=== PATIENT | female | born 1975 | race African-American/Black ===

== ENCOUNTER 2019-10-11 14:26 | Emergency (ER) | payer SELFPAY ==
[~2019-10-11] VITALS: Ht 162.6 cm; Wt 88.6 kg
[2019-10-11 14:41] VITALS: BP 135/79; TEMP 98.1
[2019-10-11] MEDS ORDERED: FLEXERIL 1010 MG/TAB PO (15:46)
[2019-10-11] MEDS ORDERED: PREDNISONE20 MG PO (15:46)
[2019-10-11 15:59] VITALS: PULSE 86
== END 2019-10-11 15:56 | disposition home or self-care (01) ==
LOC: COL.ER 14:26
DX: R20.2 Paresthesia of skin (principal); Z88.0 Allergy status to penicillin

== ENCOUNTER 2019-10-16 07:31 | Emergency (ER) | payer SELFPAY ==
[~2019-10-16] VITALS: Ht 162.6 cm; Wt 88.6 kg
[~2019-10-16 07:31] MED LIST: FLEXERIL 1010 MG/TAB PO; PREDNISONE20 MG PO
[2019-10-16 07:38] VITALS: BP 118/81; TEMP 98.3
[2019-10-16] MEDS ORDERED: NEURONTIN300 MG/CAP PO (09:36)
[2019-10-16 09:50] VITALS: PULSE 101
== END 2019-10-16 09:48 | disposition home or self-care (01) ==
LOC: COL.ER 07:31
DX: R20.2 Paresthesia of skin (principal); Z79.52 Long term (current) use of systemic steroids; Z88.0 Allergy status to penicillin

== ENCOUNTER 2019-11-08 15:23 | Emergency (ER) | payer SELFPAY ==
[~2019-11-08] VITALS: Ht 162.6 cm; Wt 90.9 kg
[~2019-11-08 15:23] MED LIST changes: +NEURONTIN300 MG/CAP PO
[2019-11-08 15:25] VITALS: TEMP 98.9
[2019-11-08] MEDS ORDERED: ULTRAM 50MG TAB50 MG PO (16:43)
[2019-11-08 17:10] VITALS: BP 120/63; PULSE 93
== END 2019-11-08 17:10 | disposition home or self-care (01) ==
LOC: COL.ER 15:23
DX: M79.2 Neuralgia and neuritis, unspecified (principal)
CPT/HCPCS: J1885

== ENCOUNTER → 2020-01-11 | Outpatient (CLI) | payer OTHER ==
[~2020-01-11] MED LIST changes: +KEPPRA 500MG500 MG PO; +ULTRAM 50MG TAB50 MG PO
== END ==
LOC: MC.RAD 07:45
DX: Z12.31 Encounter for screening mammogram for malignant neoplasm of breast (principal); Z80.3 Family history of malignant neoplasm of breast

== ENCOUNTER 2020-01-14 10:30 | Outpatient (RCR) | payer OTHER | END 2020-03-03 | disposition home or self-care (01) | LOC: WSC | DX: M79.601 Pain in right arm (principal); R20.2 Paresthesia of skin ==

== ENCOUNTER 2020-03-18 09:59 | Emergency (ER) | payer MEDICAID ==
[~2020-03-18] VITALS: Ht 162.6 cm; Wt 88.6 kg
[2020-03-18 10:16] VITALS: TEMP 98.8
[2020-03-18 10:49] LABS: COLLECTION METHOD CLEAN CATCH
[2020-03-18 10:58] LABS: BASO # 0.1 (0.0-0.2); BASO % 0.7 % (0.0-2.0); EOS % 0.2 % (0-4.0); GRAN # 7.8 (1.4-6.5); HEMATOCRIT 40.2 % (37.0-47.0); HEMOGLOBIN 13.6 g/dl (12.5-16.0); LYMPH # 1.2 (1.2-3.4); LYMPH % 12.5 % (20.0-51.0); MEAN CELL VOLUME 90 fl (80.0-100.0); MEAN CORPUSCULAR HEMOGLOBIN 31 pg (27.0-31.0); MEAN CORPUSCULAR HGB CONC 34 g/dl (33.0-37.0); MEAN PLATELET VOLUME 9.6 fl (7.4-10.4); MONO # 0.6 (0.1-0.6); MONO % 6.4 % (1.7-9.3); PLATELET COUNT 305 K/mm3 (130-400); RED BLOOD COUNT 4.45 M/mm3 (4.10-5.30); REDCELL DISTRIBUTION WIDTH-CV 12.8 % (11.5-14.5)
[2020-03-18 10:59] LABS: ALBUMIN 4.7 gm/dL (3.5-5.0); BILIRUBIN,TOTAL 0.6 mg/dL (0.0-1.0); CALCIUM 9.2 mg/dL (8.4-10.2); CREATININE, serum 0.93 (0.52-1.25); POTASSIUM 3.8 mmol/L (3.4-5.0); TOTAL PROTEIN 7.9 gm/dL (6.4-8.2)
[2020-03-18 11:15] LABS: PROLACTIN 5.4 ng/mL (3.0-18.6)
[2020-03-18 11:18] LABS: MUCOUS Present /lpf; PH 5 (5-8); URINE APPEARANCE Hazy; URINE BACTERIA None Seen /hpf; URINE BILIRUBIN Negative (NEGATIVE); URINE BLOOD 2+ (NEGATIVE); URINE COLOR Yellow; URINE GLUCOSE Negative (NEGATIVE); URINE KETONE Negative (NEGATIVE); URINE LEUKOCYTE ESTERASE Negative (NEGATIVE); URINE NITRATE Negative (NEGATIVE); URINE PROTEIN(semi-quant) Negative (NEGATIVE); URINE RBC 0-2 /hpf; URINE UROBILINOGEN Negative (NEGATIVE)
[2020-03-18] MEDS ORDERED: DEPAKOTE ER 50500 MG PO (11:26)
[2020-03-18 12:05] VITALS: BP 125/65; PULSE 87
== END 2020-03-18 12:02 | disposition home or self-care (01) ==
LOC: COL.ER 09:59
PROVIDERS: Family Medicine
DX: R51.9 Headache, unspecified (principal); G40.909 Epilepsy, unspecified, not intractable, without status epilepticus; R53.1 Weakness; R11.0 Nausea; Z88.6 Allergy status to analgesic agent; Z88.0 Allergy status to penicillin
CPT/HCPCS: J7120

== ENCOUNTER 2020-04-25 06:48 | Day surgery (SDC) | payer MEDICAID ==
[2020-04-25] VITALS (12 sets, daily range): BP systolic 121–140; BP diastolic 60–81; PULSE 84–110; TEMP 97.8–98.6
[~2020-04-25] VITALS: Ht 162.6 cm; Wt 90.0 kg
[~2020-04-25 06:48] MED LIST changes: +DEPAKOTE ER 50500 MG PO
[2020-04-25] MEDS ORDERED: Birth control PO (09:17)
--- NOTE | 2020-04-25 16:00 | NUR ---
Patient calls out and reports incision site is bleeding. Golf ball sized amount of saturation noted on gown from top site. Dr. Le notified, orders recieved to apply gauze and tegaderm. Placed per order.
[2020-04-25] MEDS ORDERED: ROXICODONE 55 MG/TAB PO (16:42)
[2020-04-25] MEDS ORDERED: IBU800 M1 PO (16:42)
--- NOTE | 2020-04-25 22:30 | NUR ---
Lap incision above umbulicus dressing off. Pt requests new dressing. Site with old blood drainage, no new drainage noted. Quarter sized bruising aroung incision. New 2x2 and tegaderm dressing placed.
[2020-04-26 05:50] VITALS: BP 120/59; PULSE 91; TEMP 98.9
[2020-04-26 07:21] VITALS: BP 114/57; PULSE 98; TEMP 98
--- NOTE | 2020-04-26 09:00 | NUR ---
AC BLOOD SUGAR NOTED TO BE 46. FED 18 ML BOTTLE OF SIMILAC BY MOTHER. DR. HOME RACHEL INFORMED. CONTINUE TO MONITOR BS.
--- NOTE | 2020-04-26 10:15 | NUR ---
PT UP TO BATHROOM W/ STANDBY ASSIST. PT ONLY ABLE TO VOID APPROX 30 ML. RN ENCOURAGED PT TOP INCREASE FLUID INTAKE. PT TOLERATED AMBULATION WELL, DENIES DIZZINESS/ NAUSEA/INCREASED PAIN WITH URINATION.
[2020-04-26 12:43] VITALS: BP 110/960; PULSE 104; TEMP 98.4
--- NOTE | 2020-04-26 13:13 | NUR ---
INT REMOVED, D/S INSTRUCTIONS PROVIDED. UNDERSTANDING VERBALIZED. PT ESCORTED OFF UNIT.
== END 2020-04-26 13:15 | disposition home or self-care (01) ==
LOC: SDCO 06:48 → OB 11:25 → SDCO 04-26 13:15
DX: D25.2 Subserosal leiomyoma of uterus (principal); N92.0 Excessive and frequent menstruation with regular cycle; N83.8 Other noninflammatory disorders of ovary, fallopian tube and broad ligament; E66.9 Obesity, unspecified; Z88.0 Allergy status to penicillin; Z20.822 Contact with and (suspected) exposure to COVID-19
CPT/HCPCS: OP; A4314; J0330; J1100; J1200; J2405; J2550; J2704; J2710; J2795; J3010; J7120

== ENCOUNTER → 2020-07-03 | Outpatient (CLI) | payer MEDICAID ==
[~2020-07-03] MED LIST changes: +Birth control PO; +IBU800 M1 PO; +ROXICODONE 55 MG/TAB PO
== END ==
LOC: COL.RAD 07:07
DX: R20.2 Paresthesia of skin (principal); Z86.69 Personal history of other diseases of the nervous system and sense organs
CPT/HCPCS: A9585

== ENCOUNTER → 2020-08-04 | Outpatient (CLI) | payer MEDICAID | LOC: COL.CARD 09:41 | DX: R20.2 Paresthesia of skin (principal); Z86.69 Personal history of other diseases of the nervous system and sense organs ==

== ENCOUNTER 2021-01-16 17:25 | Emergency (ER) | payer MEDICAID ==
[~2021-01-16] VITALS: Ht 10.2 cm; Wt 90.5 kg
[2021-01-16 17:46] VITALS: TEMP 97.8
[2021-01-16 19:20] VITALS: BP 142/78; PULSE 76
== END 2021-01-16 19:20 | disposition home or self-care (01) ==
LOC: COL.ER 17:25
DX: S61.211A Laceration without foreign body of left index finger without damage to nail, initial encounter (principal); W26.8XXA Contact with other sharp object(s), not elsewhere classified, initial encounter

== ENCOUNTER → 2021-01-30 | Outpatient (CLI) | payer MEDICAID ==
[2021-01-30 09:35] VITALS: BP 119/89; PULSE 105; TEMP 98.6
== END ==
LOC: COL.ER 09:08
DX: Z48.02 Encounter for removal of sutures (principal)

== ENCOUNTER 2021-08-03 09:20 | Emergency (ER) | payer MEDICAID ==
[~2021-08-03] VITALS: Ht 162.6 cm; Wt 89.1 kg
[2021-08-03 09:29] VITALS: BP 117/65; PULSE 93; TEMP 98.3
[2021-08-03] MEDS ORDERED: NEURONTIN600 MG/TAB PO (09:32)
[2021-08-03] MEDS ORDERED: ESTRACE 1MG1 MG/TAB PO (09:32)
[2021-08-03] MEDS ORDERED: VICTOZA6 MG/ML SQ (09:33)
[2021-08-03] MEDS ORDERED: LIPITOR20 MG PO (09:33)
== END 2021-08-03 10:27 | disposition home or self-care (01) ==
LOC: COL.ER 09:20
DX: R05.9 Cough, unspecified (principal)

== ENCOUNTER 2021-10-13 10:24 | Emergency (ER) | payer MEDICAID ==
[~2021-10-13] VITALS: Ht 162.6 cm; Wt 89.1 kg
[~2021-10-13 10:24] MED LIST changes: +ESTRACE 1MG1 MG/TAB PO; +LIPITOR20 MG PO; +NEURONTIN600 MG/TAB PO; +VICTOZA6 MG/ML SQ
[2021-10-13 12:39] LABS: BASO # 0.1 K/mm3 (0.0-0.2); BASO % 0.8 % (0.0-2.0); EOS # 0.1 K/mm3 (0.0-0.7); GRAN # 6.8 K/mm3 (1.4-6.5); GRAN % 64.1 % (42.2-75.2); HEMATOCRIT 45.1 % (37.0-47.0); HEMOGLOBIN 14.5 g/dl (12.5-16.0); LYMPH # 2.9 K/mm3 (1.2-3.4); LYMPH % 27.5 % (20.0-51.0); MEAN CELL VOLUME 93 fl (80.0-100.0); MEAN CORPUSCULAR HEMOGLOBIN 30 pg (27-31); MEAN CORPUSCULAR HGB CONC 32 g/dl (33.0-37.0); MONO # 0.7 K/mm3 (0.1-0.6); MONO % 6.4 % (1.7-9.3); PLATELET COUNT 252 K/mm3 (130-400); RED BLOOD COUNT 4.84 M/mm3 (4.10-5.30); REDCELL DISTRIBUTION WIDTH-CV 12.8 % (11.5-14.5)
[2021-10-13] MEDS ORDERED: NORCO 325 MG-51 TAB PO (13:23)
[2021-10-13] MEDS ORDERED: MEDROL 4MG DOSPA4 MG PO (13:23)
[2021-10-13] MEDS ORDERED: FLEXERIL 1010 MG/TAB PO (13:23)
[2021-10-13 14:25] VITALS: BP 127/81; PULSE 80; TEMP 96.7
== END 2021-10-13 14:25 | disposition home or self-care (01) ==
LOC: COL.ER 10:24
PROVIDERS: Family Medicine
DX: M54.16 Radiculopathy, lumbar region (principal); Z88.6 Allergy status to analgesic agent
CPT/HCPCS: J2360